=== PATIENT | female | born 1970 ===

== ENCOUNTER 2019-04-29 11:02 | Inpatient (IN) ==
[~2019-04-29 11:02] MED LIST: Ropivacaine/PF 0.5% 24.62 ML, EPINEPHrine 0.25 MG, Ketorolac 15 MG, Water for inj. (ste... IR ONE; ceFAZolin 1,000 MG, Sodium Chloride IRRigation 1,000 ML IR ONE
[2019-04-29] MEDS ORDERED: Albuterol 2.5 MG/3 ML NEBULIZER IH ONE (11:31)
[2019-04-29] MEDS ORDERED: CeFAZolin Syr 2,000MG/20 ML 2,000 MG/20 ML SYRINGE IVPB ONE (11:31)
[2019-04-29] MEDS ORDERED: Ringers Solution, Lactated 1,000 ML IVC SCH (11:45)
[2019-04-29] MEDS ORDERED: Albuterol 2.5 MG/3 ML NEBULIZER ONE (11:46)
--- NOTE | 2019-04-29 11:58 | Anesthesia Evaluation PreOp ---
Date of Encounter: 04/29/19 Time of Encounter: 12:01 - Past History Planned Operation: Left knee hardware removal, left AKA Cardiac History: CHF, Hyperlipidemia, Other (poor functional capacity due to LLE pain) Pulmonary History: Smoker, COPD, Snore, Gasp/choke asleep, ALFREDO Dx (possible - never been tested) PHARMACY AIDE History: Other (anxiety, fibromyalgia, chronic pain) Anesthesia History: No Prior Anesthetic Complications Alcohol Use: none Drug use: none Medications and Allergies Allergy/AdvReac Type Severity Reaction Status Date / Time etodolac [From Lodine] Allergy Swelling Verified 06/26/15 14:22 of the Eye - Meds/Allergy Pre-op Review Medications Reviewed: Yes Allergies Reviewed: Yes Beta Blockers on Current Med List: No Anesthesia Results - Labs Laboratory Tests 04/26/19 04/26/19 04/26/19 11:35 11:35 11:35 WBC 10.9 Hgb 12.9 Hct 40.9 Plt Count 512 H PT 12.9 H INR 1.1 APTT 38.9 H Sodium 136 Potassium 3.1 L Chloride 101 Carbon Dioxide 26 BUN 10 Creatinine 0.99 Est GFR ( Amer) > 60 Est GFR (Non-Af Amer) 60 BUN/Creatinine Ratio 10 Glucose 112 H Serum , Qual 04/26/19 11:35 WBC Hgb Hct Plt Count PT INR APTT Sodium Potassium Chloride Carbon Dioxide BUN Creatinine Est GFR ( Amer) Est GFR (Non-Af Amer) BUN/Creatinine Ratio Glucose Serum , Qual Inconclusive quantitative BHcg at [place] [id number]; [facility]-[employer] IN[employer]'s Dr. Lise Lyon clears patient for surgery as she has determined patient is not - Imaging EKG: report reviewed, image reviewed (SINUS RHYTHM LOW QRS VOLTAGE IN PRECORDIAL LEADS) Anesthesia Exam Last Vital Signs Temp 99.7 F H 04/29/19 11:45 Pulse 99 04/29/19 11:45 Resp 18 04/29/19 11:45 BP 126/78 04/29/19 11:45 Pulse Ox 93 04/29/19 11:45 Weight: 96 kg NPO (# of Hours): > 8 hrs - HEENT Pupil (Motor): Pupils equal, EOMI Mallampati: II Teeth: Edentulous Oral Opening: Greater than 3 - PHARMACY AIDE LOC: Oriented - Cardiac Rhythm: Regular Murmur: None - Pulmonary Breath Sounds: bilateral Clear Respiratory Effort: Symmetrical Anesthesia Assess/Plan ASA Score: 3 Level of consciousness: Cooperative Anesthetic Plan: General, Regional Nerve Block Regional Nerve Block Plan: Femoral, Sciatic Monitoring Plan: Standard Monitors Recovery Plan: PACU
[2019-04-29] MEDS ORDERED: *HR* Promethazine 25 MG/ML VIAL IVP PRN (12:01)
[2019-04-29] MEDS ORDERED: Acetaminophen IV 1,000 MG/100 ML INFUS..BTL IVPB ONE (12:01)
[2019-04-29] MEDS ORDERED: *HR* OxyCODONE Immed Rel 5 MG TABLET PO PRN (12:01)
[2019-04-29] MEDS ORDERED: *HR* OxyCODONE ER (12 HR) 20 MG TABLET PO STA (12:03)
[2019-04-29] MEDS ORDERED: *HR* OxyCODONE ER (12 HR) 10 MG TABLET PO STA (12:12)
--- NOTE | 2019-04-29 12:20 | History & Physical Report ---
Date of Encounter: 04/29/19 Time of Encounter: 12:20 24 Hour HP Update - Instructions Instructions: If the History and Physical is less than 30 days old and was completed prior to A.M. admission and or procedure and has NOT been updated on calendar day of procedure please complete this update prior to performing procedure. - Update Patient reports changes in Medical Condition: No Changes in examination, assessment, or condition: No Changes in Medication: No Preop tests/diagnostics Reviewed: Yes Surgery Remains Indicated: Yes Consent for Planned Operative Procedure(s) Verified: Yes - Pre-Operative Checklist Preoperative Checklist Indicated: No Prophylactic Antibiotic Ordered: Yes Is VTE Prophylaxis Indicated?: Yes
[2019-04-29] MEDS ORDERED: Ropivacaine/PF 0.5% 30 ML VIAL ONE ×2 (12:34→13:43)
[2019-04-29] MEDS ORDERED: ROPIVACAINE/PF/NS 0.25% 1 EACH SYRINGE INTRAART ONE (12:34)
[2019-04-29] MEDS ORDERED: *HR* FentaNYL (PF) 100 MCG/2 ML VIAL ONE ×2 (12:48→14:16)
[2019-04-29] MEDS ORDERED: *HR* Midazolam HCl 2 MG/2 ML VIAL ONE (12:48)
[2019-04-29] MEDS ORDERED: Lidocaine -MPF 4% 5 ML AMPUL ONE (12:51)
[2019-04-29] MEDS ORDERED: Ondansetron 4 MG/2 ML VIAL ONE (12:51)
[2019-04-29] MEDS ORDERED: *HR* Rocuronium Bromide 50 MG/5 ML VIAL ONE (12:51)
[2019-04-29] MEDS ORDERED: Dexamethasone 4 MG/ML VIAL ONE (12:51)
[2019-04-29] MEDS ORDERED: *HR* Propofol 200 MG/20 ML VIAL IVP ONE ×2 (13:10→14:34)
[2019-04-29] MEDS ORDERED: Lidocaine -MPF 2% 2 ML VIAL ONE (13:10)
--- NOTE | 2019-04-29 13:33 | History & Physical Report ---
Date of Encounter: 04/29/19 Time of Encounter: 13:00 24 Hour HP Update - Instructions Instructions: If the History and Physical is less than 30 days old and was completed prior to A.M. admission and or procedure and has NOT been updated on calendar day of procedure please complete this update prior to performing procedure. - Update Patient reports changes in Medical Condition: No Changes in examination, assessment, or condition: No Preop tests/diagnostics Reviewed: Yes Surgery Remains Indicated: Yes Consent for Planned Operative Procedure(s) Verified: Yes - Pre-Operative Checklist Preoperative Checklist Indicated: Yes Prophylactic Antibiotic Ordered: Yes Home Medications Include Beta Stephanie: No Beta Stephanie Taken Today (Day of Surgery): No Beta Stephanie Taken Yesterday (Day Prior to Surgery): No Is VTE Prophylaxis Indicated?: Yes
--- NOTE | 2019-04-29 14:55 | Orthopedic Operative Note ---
Date of procedure: 04/29/19 Pre-op diagnosis: Infected left total knee Post-op diagnosis: same Procedure: Procedure: Left removal Total knee replacement Estimated blood loss: 100 cc Exam Under anesthesia: Loss of full extension 20 degrees, large scar anterior with a width of 2 cm draining wound at the level of anteromedial aspect of knee joint. Procedural Notes: Gross contamination with purulent material intra-articular gross loosening of tibial and femoral components. Operative procedure: The patient was brought to the operating room and placed on the operating room table. After general anesthesia was administered the operative knee was examined. Findings were noted in the exam under anesthesia. The operative extremity was prepped and draped in sterile surgical fashion. The patient received IV antibiotics prior to skin incision. A standard midline incision was made centered over the patella. This was made up to the level of the insertion of the patella, where the quadriceps tendon meets the patella to preserve tissue for the above-knee amputation. The incision was made through the skin and subcutaneous tissue. A medial parapatellar tendon approach was performed. Purulent material was encountered cultures were obtained. Knee was brought into flexion. The knee was subluxed forward, the tibial component was grossly loose and was removed by hand. Femoral component was also loose but required removal with a osteotome and mallet. The knee sat with an antibacterial solution while Dr. Dobbins prepared to do his portion of the procedure. The patient was intubated when I left the OR I updated her family on the status. Anesthesia: GETA Surgeon: Sg Lim Was there an educational assistant teacher present: No Estimated blood loss (cc): 100 Condition: stable Disposition: other (Patient still in the operating room awaiting second stage of procedure which was above-knee amputation by Dr. Dobbins)
[2019-04-29] MEDS ORDERED: *HR* PHENYLEPHRINE 1,000 MCG/10 ML SYRINGE IVP ONE ×3 (15:30→16:41)
[2019-04-29] MEDS ORDERED: Acetaminophen IV 1,000 MG/100 ML INFUS..BTL ONE (15:52)
--- NOTE | 2019-04-29 17:06 | Operative Note ---
Date of procedure: 04/29/19 Pre-op diagnosis: recurrent and persistent left TKR infection Post-op diagnosis: same Procedure: left above knee qmputation Complications: 0 Anesthesia: GETA Surgeon: Americo Dobbins Was there an geological survey field assistant present: No Estimated blood loss (cc): 250 Specimen: left AKA Condition: stable Disposition: PACU Procedure in Detail: History Bessie Dong is a 48-year-old white female abdomen referred to the vascular surgery clinic because of recurrent and persistent left knee infection. Patient's issue began about 3 years ago when she underwent her first knee replacement. This became infected and was removed. She had a spacer placed. She went on to have a second knee replaced after antibiotic therapy. Unfortunately the second knee became infected. The patient had severe and persistent pain and was disabled by this technique. The patient was then seen in second opinion by Dr. Lim of Orthopedics who recommended no further attempts at joint replacement. Therefore the patient would require amputation above the knee. Procedure After informed consent was obtained the patient was taken the operating room. Dr. Lim proceeded first with removal of the infected knee replacement. After this was accomplished I came to the operating room. At that point I performed a left carhm-aka-vxzp amputation. An incision was made in a fishmouth-type orientation in the mid to distal thigh. This would allow removal of all of the skin scar. Upon dissection to and through the subcutaneous tissue and fascia tremendous amount of inflammatory material was encountered as expected. This led to a greater than average blood loss due to the inflammatory tissue. Working through the compartments and dividing muscle with Bovie cautery and the periosteum was encountered. This was then raised. The neurovascular bundle were also identified and selectively dissected clamped divided and ligated. The femur was then divided with the sagittal saw. However upon inspection of the residual marrow space there was significant cement present. Due to the patient's recurrent and persistent infection it was judged inappropriate to leave any residual cement. Therefore the periosteum was raised even more proximal and an additional approximately 1/2-2 inches of the femur was removed in order to remove all of the residual cement. With this done the edges of the femur were rasped smooth. The area was copiously irrigated with warm antibiotic-containing solution. The area was inspected for hemostasis. With this done the fascia was then reapproximated using interrupted 2-0 Vicryl sutures. The skin edges were closed using bryson. A bulky dry dressing was then applied. The patient was extubated in the operating room. She was taken to the recovery room in stable condition. There were no intraoperative complications.
--- NOTE | 2019-04-29 17:44 | Anesthesia Evaluation Post Op ---
Date of Encounter: 04/29/19 Time of Encounter: 17:43 - Vital Signs Vital Signs: Vital Signs/O2 Sat, Most Current Temp Pulse Resp BP Pulse Ox 97.3 F L 93 16 118/74 97 04/29/19 17:07 04/29/19 17:27 04/29/19 17:27 04/29/19 17:27 04/29/19 17:27 - Lungs Lungs: Clear Ascult./Percussion - Airway Airway: Non-obstructed - Cardiovascular Regular Rate - Mental Status Mental Status: Alert & Oriented, Answers Appropriately - Pain Pain Scale: 0 Pain Scale used: Numeric (1 - 10) - Nausea Vomiting Nausea Vomiting: Not Present - Hydration Hydration: Ice chips, Lambert catheter - Discharge PostOp Status: Transfer Patient to floor
[2019-04-29] MEDS ORDERED: Ondansetron 4 MG/2 ML VIAL IVP PRN (17:50)
[2019-04-29] MEDS: Ibuprofen 200 MG TABLET PO PRN (20:04)
[2019-04-30 06:23] LABS: Basophils % 0.1 %; Hematocrit 29.8 % (35.3-44.9); Immature Granulocytes % 0.6 % (0-4); Lymphocytes # 1.4 K/mcL (0.6-4.6); Lymphocytes % 8.9 %; Mean Corpuscular HGB Conc 30.5 g/dL (31.6-35.5); Mean Corpuscular Hemoglobin 26.1 pg (28.0-33.3); Mean Corpuscular Volume 85.6 fL (83.0-100.0); Mean Platelet Volume 9.2 fL (9.4-12.4); Monocytes # 0.8 K/mcL (0.0-1.3); Monocytes % 4.9 %; Neutrophils # 13.1 K/mcL (1.6-8.9); Platelet Count 341 K/mcL (140-400); Red Blood Count 3.48 M/mcL (3.82-4.97); Red Cell Distribution Width 15.9 % (11.5-14.5); Segmented Neutrophils % 85.5 %; White Blood Count 15.4 K/mcL (4.3-11.1)
[2019-04-30 06:24] LABS: Hemoglobin 9.1 g/dL (11.5-15.4)
[2019-04-30 06:41] LABS: BUN/Creatinine Ratio 13 (6-26); Blood Urea Nitrogen 10 mg/dL (6-20); Calcium 8.6 mg/dL (8.6-10.3); Carbon Dioxide 27 mEq/L (23-29); Chloride 101 mEq/L (98-107); Glucose 144 mg/dL (70-105); Osmolality,Calculated 288 (280-300); Potassium 3.3 mEq/L (3.5-5.1); Sodium 138 mEq/L (136-145); eGFR For African Americans > 60 (> 60); eGFR For Non-African Americans > 60 (> 60)
[2019-04-30] MEDS: Ibuprofen 200 MG TABLET PO PRN ×2 (08:04→15:28)
--- NOTE | 2019-04-30 08:20 | Vascular/Endovas Progress Note ---
Date of Encounter: 04/30/19 Time of Encounter: 08:18 - Assessment and plan (1) Infection of total left knee replacement Current Visit: Yes Status: Chronic Patient is postoperative day #1 following a left AKA and removal of infected left knee replacement. Patient is hemodynamically stable. Begin physical therapy. Patient did be seen by social work service in anticipation of transfer to extended care facility. Qualifiers: Encounter type: subsequent encounter Qualified Code(s): T84.54XD - Infec tion and inflammatory reaction due to internal left knee prosthesis, subsequent encounter - Subjective Interval history: Patient is postoperative day #1 following left above-knee amputation. Patient had an uneventful night. Patient is comfortable. Vital Signs, Last 4 Hours Temp Pulse Resp BP Pulse Ox 04/30/19 07:12 97.9 F 75 17 119/53 100 - Physical Examination General: Present: Conversant, No Apparent Distress Cardiac: Present: Reg Rate and Rhythm Vascular: Present: Amputation(s) (Left above-knee amputation site dressing is intact.) Results 04/30/19 06:09 04/30/19 06:09 Lab Results, Last 24 hours 04/30/19 04/30/19 06:09 06:09 WBC 15.4 H Hgb 9.1 L D Hct 29.8 L Plt Count 341 Sodium 138 Potassium 3.3 L Chloride 101 Carbon Dioxide 27 BUN 10 Creatinine 0.80 Glucose 144 H Calcium 8.6 Consult Discharge Plan - Plan Referrals: Baljinder Galicia DO [Primary Care Provider] -
[2019-04-30] MEDS: *HR* HYDROcodone/Acet 5/325 mg TABLET PO PRN ×2 (14:06→20:28)
[2019-04-30] MEDS: *HR* OxyCODONE/APAP 7.5/325 TABLET PO PRN (18:51)
[2019-05-01] MEDS: *HR* HYDROcodone/Acet 5/325 mg TABLET PO PRN ×3 (04:53→21:59)
[2019-05-01 05:51] LABS: Basophils % 0.2 %; Eosinophils # 0.1 K/mcL (0.0-0.6); Eosinophils % 0.7 %; Hematocrit 26.4 % (35.3-44.9); Hemoglobin 8.5 g/dL (11.5-15.4); Immature Granulocytes % 0.4 % (0-4); Lymphocytes # 2.1 K/mcL (0.6-4.6); Lymphocytes % 19.4 %; Mean Corpuscular HGB Conc 32.2 g/dL (31.6-35.5); Mean Corpuscular Volume 83.8 fL (83.0-100.0); Mean Platelet Volume 9.2 fL (9.4-12.4); Monocytes # 0.9 K/mcL (0.0-1.3); Monocytes % 8.7 %; Neutrophils # 7.7 K/mcL (1.6-8.9); Platelet Count 325 K/mcL (140-400); Red Blood Count 3.15 M/mcL (3.82-4.97); Segmented Neutrophils % 70.6 %; White Blood Count 10.8 K/mcL (4.3-11.1)
[2019-05-01 06:12] LABS: BUN/Creatinine Ratio 12 (6-26); Blood Urea Nitrogen 12 mg/dL (6-20); Calcium 8.3 mg/dL (8.6-10.3); Carbon Dioxide 27 mEq/L (23-29); Chloride 103 mEq/L (98-107); Glucose 133 mg/dL (70-105); Osmolality,Calculated 290 (280-300); Potassium 3.1 mEq/L (3.5-5.1); Sodium 139 mEq/L (136-145); eGFR For African Americans > 60 (> 60); eGFR For Non-African Americans > 60 (> 60)
[2019-05-01] MEDS: *HR* OxyCODONE/APAP 7.5/325 TABLET PO PRN ×2 (08:10)
--- NOTE | 2019-05-01 13:09 | Infectious Disease Consult ---
Infectious Disease-Consult - Encounter Date/Time Date of Encounter: 05/01/19 Time of Encounter: 13:01 - Data of Consult Patient: new to practice Reason for consult: Left knee infection status post AKA Consult date: 05/01/19 Requesting Physician: Sg Lim MD Primary Care Provider: Baljinder Galicia, - HPI HPI: Ms. Dong is a 48-year-old female with a past medical history of obesity, tobacco abuse, and chronic left knee infection status post revision 2 area the patient was admitted to the hospital 04/29/19 for a left AKA. We are consulted 05/01/19 for further workup and treatment recommendations for left knee infection status post AKA. Briefly, Ms. Dong is a 48-year-old female with a past medical history as stated above. The patient was directly admitted to the hospital 04/29/19 after she u nderwent a left AKA by Dr. Smith with removal of the hardware by Dr. Lim secondary to a chronic ongoing knee infection. Apparently, the patient had suffered from osteoarthritis of the left knee. She underwent a left total knee replacement in [address] Luis which subsequently became infected. She underwent a two stage exchange by his partner, Dr. Milan Em which included removal of components after an infection with likely MRSA, placement of abx spacer, PICC line w/ IV vanc, removal of spacer, placement of constrained TKA around March 2017, wound dehiscence and wound care (vac + wet to dry dressings) over L knee. Saw PCP for routine f/u appointment who XR her L knee and tibia because she was c/o L barrera pain around the tibial tubercle. She was referred to [facility] where she saw orthopedics. She underwent aspiration of the knee that yielded purulent fluid and was referred to plastic surgery. Cultures were positive for MRSA. The plan was for staged revision with plastic surgery to evaluate for a flap, but the patient did not stop smoking so surgery was never scheduled. She continued to have non-healing surgical wound and pain. She sought a second opinion from Dr. Lim on 04/09/19 who recommended AKA. She was referred to Dr. Dobbins who performed the procedure on 04/29/19. Currently, the patient is not on any antibiotics. We've been asked to evaluate and make further recommen dations. During my exam today, the patient endorses the history as stated above. Prior to surgery, she reports intermittent subjective fevers with chills. Denies headache or neck pain. Denies chest pain, shortness of breath, or cough. Denies nausea, vomiting, diarrhea, constipation. Denies abdominal pain or urinary complaints. Denies oral thrush or skin rashes. Reports a chronic nonhealing surgical wound to the left anterior knee with intermittent formation of blisterlike lesions with copious amounts of purulent drainage that would run down her leg. She reported severe pain in the left knee with swelling, but denies any erythema. The patient lives at home by herself and [place], [place]. She is disabled and does not work outside the home. She smokes 5 cigarettes per day. Denies alcohol or illicit drug use. Denies any chronic infectious diseases. - ROS Review of Systems: All systems reviewed and no additional remarkable complaints except as stated. - Results CBC & Chem 7: 05/01/19 05:25 05/02/19 07:48 - Exam Vitals: Temp Pulse Resp BP Pulse Ox 98.0 F 81 16 102/60 99 05/01/19 12:25 05/01/19 12:25 05/01/19 12:25 05/01/19 12:25 05/01/19 12:25 Exam: Head: Atraumatic, normal inspection, normocephalic. Eye: EOMI, PERRLA, no scleral icterus noted. ENT: Mucous membranes moist. No odontogenic infection noted. Neck: Normal inspection, no meningismus. Respiratory: Clear to auscultation. No rales, respiratory distress, rhonchi, or wheezes noted. Cardiovascular: Regular rate and rhythm, S1 and S2 audible. No murmurs, rubs, or gallops. GI: Soft, nondistended, normal bowel sounds. Extremities: No joint swelling, pedal edema, or tenderness noted. Left AKA surgical site open to air with bryson intact. Wound edges are well approximated. No erythema, warmth, tenderness, or drainage. Back: Normal inspection. No vertebral tenderness noted. Neurological: Alert, oriented 3, no focal deficits. Psychiatric: normal affect, normal mood. Skin: Dry, intact, warm. Normal color. No rashes. Amitriptyline HCl 100 mg PO HS 04/29/19 [History] Buspirone HCl [Buspar] 20 mg PO TID 04/29/19 [History] Cyclobenzaprine HCl 5 mg PO BID PRN 04/29/19 [History] DULoxetine [Cymbalta] 20 mg PO DAILY 04/29/19 [History] Duloxetine HCl [Cymbalta] 60 mg PO DAILY 04/29/19 [History] Ibuprofen [Motrin Ib] 200 mg PO TID PRN 04/29/19 [History] Omeprazole [PriLOSEC] 40 mg PO DAILY 04/29/19 [History] Quetiapine Fumarate [SEROquel] 25 mg PO HS 04/29/19 [History] HYDROcodone/Acet 5/325 mg [[place] 5-325 mg] 1 tab PO Q4HR PRN 7 Days #20 tablet 05/01/19 [Rx] Sulfamethoxazole/Trimeth DS [Bactrim Ds] 1 each PO BID #20 tablet 05/01/19 [Rx] Allergy/AdvReac Type Severity Reaction Status Date / Time etodolac [From Lodine] Allergy Swelling Verified 04/29/19 12:03 of the Eye - Assessment and Plan (1) Infection of total left knee replacement Status: Chronic Location: Left knee. Causative organism: MRSA. Status post right total knee [place] [address] Luis with [facility]. Status post 2-stage exchange [place] [address] Em with IV Vanc x 6 weeks. Had recurrence of wound dehiscence and infection. Was referred to [facility] due to x- ray concerns for septic loosening of the hardware. Status post arthrocentesis that yielded purulent synovial fluid positive for MRSA as well. The patient was never rescheduled for more surgery and requested a second opinion with Dr. Lim who recommended an AKA. Status post left AKA 04/29/[address] Smith. Intraoperative cultures are positive for presumptive MRSA. Operative note reviewed. It appears that Dr. Dobbins was aggressive with his amputation and all of the hardware was removed. Not currently on any antibiotics. Qualifiers: Encounter type: subsequent encounter Qualified Code(s): T84.54XD - Infection and inflammatory reaction due to internal left knee prosthesis, subsequent encounter SNOMED Code(s): 086345359 - Recommendations Recommendations: Wound care and activity per the Vascular surgery team. Contact precautions per the hospital policy. Although it appears that the vascular team was aggressive with removal of all infected material, would recommend a 10 day course of PO Bactrim given that it is not guaranteed that all the cement was removed and the patient's long- standing history of chronic infection. Monitor renal function and dose-adjust antibiotics. Past Med Surg Social Fam HX - Past Medical History Medical history: arthritis, asthma, CHF, COPD, hyperlipidemia, kidney stones, other Additional medical history: hx MRSA, hx chest pain, Psychiatric history: no psych history - Past Surgical History Surgical History: cholecystectomy, knee replacement, other Additional surgical history: CTR, bunion, rosmery knee, R shoulder, tubal, cardiac cath - Social History Smoking Status: Current every day smoker Packs per day: <1 ppd/29 yrs Smokeless Tobacco Status: No Alcohol use: none Drug use: none Consult Discharge Plan - Plan Instructions: Sulfamethoxazole/Trimethoprim (By mouth), Hydrocodone/Acetaminophen (By mouth), Above the Knee Amputation (DC) Additional Instructions: Daily left above-knee amputation dressing changes with Kerlix roll and Declan wraps. Keep left above-knee amputation site dry for a total of 5 days following surgery. Referrals: Baljinder Galicia DO [Primary Care Provider] - Americo Dobbins MD [Partnered Physician] - 06/17/19 8:30 am (This appointment is in [facility]) Prescriptions: Sulfamethoxazole/Trimeth DS [Bactrim Ds] 1 each PO BID #20 tablet HYDROcodone/Acet 5/325 mg [[place] 5-325 mg] 1 tab PO Q4HR PRN 7 Days #20 tablet PRN Reason: Moderate Pain - Attending Attestation I have personally performed a face to face evaluation on this patient. I have reviewed and agree with the care plan. History and Exam by me shows: This is an addendum to original report dictated by Sharonda Fairchild CNP. Please refer to Sharnoda's note for full detail. Assessment and plan: Infection of total left knee replacement Recommendations I had a discussion with Dr. Dobbins who he believes went significantly proximal to the infected area. And he got rid of all DC mentioned that was holding the hardware. Cultures are growing MRSA. Await susceptibility and we will discharge from oral antibiotics for 2-4 weeks. Patient instructed to call us if as soon as the antibiotics were stopped and she started having drainage or any signs of infection.
[2019-05-01] MEDS: Ibuprofen 200 MG TABLET PO PRN ×2 (15:40)
--- NOTE | 2019-05-01 17:16 | Vascular/Endovas Progress Note ---
Date of Encounter: 05/01/19 Time of Encounter: 13:00 - Assessment and plan (1) Infection of total left knee replacement Current Visit: Yes Status: Chronic Patient is postoperative day #2 following a left AKA and removal of infected left knee replacement. Patient is hemodynamically stable. Begin physical therapy. Patient seen by social work service in anticipation of transfer to extended care facility. Due to the cultures being positive for MRSA I have requested a consultation from infectious disease to minimize perioperative wound infection. Begin daily dressing changes to left AKA Qualifiers: Encounter type: subsequent encounter Qualified Code(s): T84.54XD - Infection and inflammatory reaction due to internal left knee prosthesis, subsequent encounter - Subjective Interval history: Patient is postoperative day #2 following left above-knee amputation. Patient had more pain last night. This is better controlled today. Vital Signs, Last 4 Hours Temp Pulse Resp BP Pulse Ox 05/01/19 16:03 97.8 F 90 18 100/60 96 05/01/19 15:40 97.8 F 90 18 100/60 96 - Physical Examination General: Present: Conversant, No Apparent Distress Vascular: Present: Amputation(s) (The left above-knee amputation site dressing was removed. The wound was inspected. The staple line is intact. There are no signs of blistering or necrotic skin. The skin edges are pink. Both anterior and posterior flaps appear completely viable.) Results 05/01/19 05:25 05/01/19 05:25 Lab Results, Last 24 hours 05/01/19 05/01/19 05:25 05:25 WBC 10.8 Hgb 8.5 L Hct 26.4 L Plt Count 325 Sodium 139 Potassium 3.1 L Chloride 103 Carbon Dioxide 27 BUN 12 Creatinine 0.98 Glucose 133 H Calcium 8.3 L Consult Discharge Plan - Plan Referrals: Baljinder Galicia DO [Primary Care Provider] - Americo Dobbins MD [Partnered Physician] - 06/17/19 8:30 am (This appointment is in [facility])
--- NOTE | 2019-05-01 17:21 | Physician Discharge Referral ---
ExtendedCare Referral Info Transfer To: [facility] Provider in Charge: Андрей Provider in Charge after Transfer: PCP Institutional Level of Care: Skilled - Diagnosis (1) Infection of total left knee replacement Priority: Primary Status: Chronic Prognosis: Good Aware of Diagnosis: Patient Aware of Prognosis: Patient - Transfer Medications Prescriptions: Sulfamethoxazole/Trimeth DS [Bactrim Ds] 1 each PO BID #20 tablet HYDROcodone/Acet 5/325 mg [[place] 5-325 mg] 1 tab PO Q4HR PRN 7 Days #20 tablet PRN Reason: Moderate Pain Home Medications: Amitriptyline HCl 100 mg PO HS 04/29/19 [History] Buspirone HCl [Buspar] 20 mg PO TID 04/29/19 [History] Cyclobenzaprine HCl 5 mg PO BID PRN 04/29/19 [History] DULoxetine [Cymbalta] 20 mg PO DAILY 04/29/19 [History] Duloxetine HCl [Cymbalta] 60 mg PO DAILY 04/29/19 [History] Ibuprofen [Motrin Ib] 200 mg PO TID PRN 04/29/19 [History] Omeprazole [PriLOSEC] 40 mg PO DAILY 04/29/19 [History] Quetiapine Fumarate [SEROquel] 25 mg PO HS 04/29/19 [History] HYDROcodone/Acet 5/325 mg [[place] 5-325 mg] 1 tab PO Q4HR PRN 7 Days #20 tablet 05/01/19 [Rx] Sulfamethoxazole/Trimeth DS [Bactrim Ds] 1 each PO BID #20 tablet 05/01/19 [Rx] Allergies/Adverse Reactions: Allergy/AdvReac Type Severity Reaction Status Date / Time etodolac [From [facility]] Allergy Swelling Verified 04/29/19 12:03 of the Eye - Respiratory Orders Smoking Cessation: Smoking cessation has been advised. For more information, call the [place] Tobacco Quit Line at 0-912-QCFE-NOW. - Ancillary Orders May use pressure relief devices daily prn, May go on ALE w/family/respon green party w/meds at nurse discretion PRN, May consult with Dentist, Paper Box Cutter, Yarn Weigher PRN - Advance Directives Code Status: Full Code - Mobility Orders Other (As per physical and occupational therapy) - Rehabiliation Orders Rehab Potential: Good Rehab Orders: ROM Exercises, Evaluation for Physical Therapy, Evaluation for Occupational Therapy - Treatments Skin tear care topically daily PRN per policy - Diet Orders Regular CERTIFICATION: I certify that the transfer of the above named patient to an Extended Care Facility is necessary for the continuing treatment of the diagnosis listed. The above information is true and accurate reflection of patient's current condition. Confidential - Redisclosure prohibited without a patient's written consent.
[2019-05-01] MEDS: Sulfamethoxazole/Trimeth DS 1 EACH TABLET PO SCH (21:38)
[2019-05-02] MEDS: *HR* HYDROcodone/Acet 5/325 mg TABLET PO PRN ×3 (03:18→16:09)
[2019-05-02] MEDS: Ibuprofen 200 MG TABLET PO PRN (03:18)
[2019-05-02] MEDS: Sulfamethoxazole/Trimeth DS 1 EACH TABLET PO SCH (08:42)
--- NOTE | 2019-05-02 09:09 | Discharge Summary ---
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 Qualifiers: Encounter type: subsequent encounter Qualified Code(s): T84.54XD - Infection and inflammatory reaction due to internal left knee prosthesis, subsequent encounter - Hospital Course Hospital course: Ms. Dong is a 48 year old female Patient was taken to the operating room on Monday. The infected left knee total knee prosthesis was removed by Dr. Lim. A left [id number] amputation was then performed by vascular surgery. The patient had an uneventful postoperative course. Patient was felt fit for transfer to the extended care rehabilitation facility on postoperative day #3. All questions were answered. - Time Spent with Patient Total time spent providing and/or coordinating discharge services: - Discharge Medications Prescriptions: New Sulfamethoxazole/Trimeth DS [Bactrim Ds] 1 each PO BID #20 tablet HYDROcodone/Acet 5/325 mg [[place] 5-325 mg] 1 tab PO Q4HR PRN 7 Days #20 tablet PRN Reason: Moderate Pain No Action Amitriptyline HCl 100 mg PO HS Quetiapine Fumarate [SEROquel] 25 mg PO HS Omeprazole [PriLOSEC] 40 mg PO DAILY Duloxetine HCl [Cymbalta] 60 mg PO DAILY Buspirone HCl [Buspar] 20 mg PO TID DULoxetine [Cymbalta] 20 mg PO DAILY Ibuprofen [Motrin Ib] 200 mg PO TID PRN PRN Reason: Mild To Moderate Pain Cyclobenzaprine HCl 5 mg PO BID PRN PRN Reason: Muscle Spasm Home Medications: Amitriptyline HCl 100 mg PO HS 04/29/19 [History] Buspirone HCl [Buspar] 20 mg PO TID 04/29/19 [History] Cyclobenzaprine HCl 5 mg PO BID PRN 04/29/19 [History] DULoxetine [Cymbalta] 20 mg PO DAILY 04/29/19 [History] Duloxetine HCl [Cymbalta] 60 mg PO DAILY 04/29/19 [History] Ibuprofen [Motrin Ib] 200 mg PO TID PRN 04/29/19 [History] Omeprazole [PriLOSEC] 40 mg PO DAILY 04/29/19 [History] Quetiapine Fumarate [SEROquel] 25 mg PO HS 04/29/19 [History] HYDROcodone/Acet 5/325 mg [[place] 5-325 mg] 1 tab PO Q4HR PRN 7 Days #20 tablet 05/01/19 [Rx] Sulfamethoxazole/Trimeth DS [Bactrim Ds] 1 each PO BID #20 tablet 05/01/19 [Rx] Allergies/Adverse Reactions: Allergy/AdvReac Type Severity Reaction Status Date / Time etodolac [From [facility]] Allergy Swelling Verified 04/29/19 12:03 of the Eye Date of admission: 04/30/19 11:05 Primary care physician: Baljinder Galicia DO Consults: 04/29/19 17:50 Consult to Physical Therapy [CONS] Routine Comment: Evaluate, develop and implement POC Reason for Consult: s/p left AKA Does patient have active BEDREST order?: No Is patient medically & hemodynamically stable?: No Patient assessed for mobility or mobilized this visit?: No Consult to Brush Or Broom Cutter [CONS] Routine Reason for SW Consult: post op amputation 04/30/19 08:09 Consult to Occupational Therapy [CONS] Routine Comment: Evaluate, develop and implement POC Reason for Consult: EVAL AND TX. S/P LEFT AKA. Does patient have active BEDREST order?: No Is patient medically & hemodynamically stable?: Yes Patient assessed for mobility or mobilized this visit?: No 05/01/19 12:48 Consult to Infectious Diseases [CONS] Routine Consulting Provider: Infectious Disease Becky Reason for Consult: Positive MRSA cultures from infected left knee prosthesis. Status post left above-knee amputation on Monday. Time Notified: 12:49 Call Completed: Yes Procedure(s) Performed: Left above-knee amputation Discharging clinician: Americo Dobbins Anticipated date of discharge: 05/02/19 Exam Vital Signs, Last 4 Hours Temp Pulse Resp BP Pulse Ox 05/02/19 06:57 98.6 F 88 18 112/64 96 General: Present: Conversant, No Apparent Distress HEENT: Present: Atraumatic Neck: Absent: JVD Neuro: Present: Alert and responsive, No focal deficits noted Vascular: Present: Amputation(s) (Left above-knee amputation site is clean and dry.) - Patient Status Disposition: Transfer SNF Condition: Good Functional capacity at discharge: wheelchair bound Overall status at discharge: patient is progressing back to baseline - Discharge Instructions Follow Up With: Baljinder Galicia DO [Primary Care Provider] - Americo Dobbins MD [Partnered Physician] - 06/17/19 8:30 am (This appointment is in [facility]) Additional Instructions: Daily left above-knee amputation dressing changes with Kerlix roll and Declan wraps. Keep left above-knee amputation site dry for a total of 5 days following surgery. - Diet and Activity Activity: as per physical therapy Diet: advance to your usual diet
--- NOTE | 2019-05-02 11:00 | Infectious Disease Progress No ---
ID Progress Note Date of Encounter: 05/02/19 Time of Encounter: 09:40 - Subjective Subjective: Patient seen and examined. No acute events noted overnight. Patient states she is tired, but otherwise feels well. Denies fevers, chills, or rigors. Denies chest pain, shortness of breath, or cough. Denies nausea, vomiting, diarrhea, or constipation. Denies abdominal pain or urinary complaints. Denies oral thrush or skin rashes. Reports mild pain at the surgical site. - Objective CBC & Chem 7: 05/01/19 05:25 05/02/19 07:48 - Exam Vitals: Temp Pulse Resp BP Pulse Ox 98.6 F 88 18 112/64 96 05/02/19 06:57 05/02/19 06:57 05/02/19 06:57 05/02/19 06:57 05/02/19 06:57 Exam: Head: Atraumatic, normal inspection, normocephalic. Eye: EOMI, PERRLA, no scleral icterus noted. ENT: Mucous membranes moist. No odontogenic infection noted. Neck: Normal inspection, no meningismus. Respiratory: Clear to auscultation. No rales, respiratory distress, rhonchi, or wheezes noted. Cardiovascular: Regular rate and rhythm, S1 and S2 audible. No murmurs, rubs, or gallops. GI: Soft, nondistended, normal bowel sounds. Extremities: No joint swelling, pedal edema, or tenderness noted. Left AKA surgical site dressing C/D/I. Neurological: Alert, oriented 3, no focal deficits. Psychiatric: normal affect, normal mood. Skin: Dry, intact, warm. Normal color. No rashes. - Assessment and Plan (1) Infection of total left knee replacement Current Visit: Yes Status: Chronic Location: Left knee. Causative organism: MRSA. Status post right total knee replacement in [address] Luis with PJI. Status post 2-stage exchange [place] [address] Em with IV Vanc x 6 weeks. Had recurrence of wound dehiscence and infection. Was referred to [facility] due to x- ray concerns for septic loosening of the hardware. Status post arthrocentesis that yielded purulent synovial fluid positive for MRSA as well. The patient was never rescheduled for more surgery and requested a second opi nion with Dr. Lim who recommended an AKA. Status post left AKA 04/29/[address] Smith. Intraoperative cultures are positive for presumptive MRSA. Operative note reviewed. It appears that Dr. Dobbins was aggressive with his amputation and all of the hardware was removed, but there may be some cement left. Currently on PO Bactrim. Qualifiers: Encounter type: subsequent encounter Qualified Code(s): T84.54XD - Infection and inflammatory reaction due to internal left knee prosthesis, subsequent encounter SNOMED Code(s): 408664835 - Recommendations Recommendations: Wound care and activity per the Vascular surgery team. Contact precautions per the hospital policy. Continue Bactrim DS 1 tab PO BID. Duration of treatment depends on the clinical picture, but likely 10 days. Treat through 05/10/19. Monitor renal function and dose-adjust antibiotics. No further recommendations from the ID team. We will sign off. Please re-consult if needed. Consult Discharge Plan - Plan Additional Instructions: Daily left above-knee amputation dressing changes with Kerlix roll and Declan wraps. Keep left above-knee amputation site dry for a total of 5 days following surgery. Referrals: Baljinder Galicia DO [Primary Care Provider] - Americo Dobbins MD [Partnered Physician] - 06/17/19 8:30 am (This appointment is in [facility]) Prescriptions: Sulfamethoxazole/Trimeth DS [Bactrim Ds] 1 each PO BID #20 tablet HYDROcodone/Acet 5/325 mg [[place] 5-325 mg] 1 tab PO Q4HR PRN 7 Days #20 tablet PRN Reason: Moderate Pain
[2019-05-02 16:17] VITALS: BP 119/66
== END 2019-05-02 18:47 | DRG 305 ==
LOC: SAMDAY 11:02 → 2NNU 17:49
PROVIDERS: ADMIT Orthopaedic Surgery; ATTEND Orthopaedic Surgery